=== PATIENT | female | born 1975 | race Caucasian/White ===

== ENCOUNTER 2018-04-12 16:34 | Emergency (ER) | payer BC ==
--- NOTE | 2018-04-12 17:31 | PDOC ---
Rapid Medical Evaluation Chief Complaint: CVA/TIA Medical Evaluation: Allergies Allergy/AdvReac Type Severity Reaction Status Date / Time aspirin Allergy Intermediate Itching Verified 04/12/18 17:28 diclofenac Allergy Intermediate Itching Verified 04/12/18 17:28 ibuprofen [From Motrin] Allergy Intermediate Itching Verified 04/12/18 17:28 naproxen sodium [From Aleve] Allergy Intermediate Itching Verified 04/12/18 17: 28 04/12/18 17:29 I have performed a brief in-person evaluation of this patient. The patient presents with a chief complaint of: left leg numbness, sent from [facility] Santoro office for eval/ R/o TIA Pertinent physical exam findings: AxO X 3 , no neuro changes, denies current numbness. States incidents occured on and off x 1 week. I have ordered the following: CT head The patient will proceed to the ED for further evaluation. and patient taken for registration. 04/12/18 19:17 04/12/18 21:59 Discharge Disposition - Diagnosis Leg numbness - Discharge Dispostion Disposition: HOME Condition at time of disposition: Good - Referrals Referrals: Jorge Santoro MD [Primary Care Provider] - - Patient Instructions Printed Discharge Instructions: DI for Transient Ischemic Attack Additional Instructions: You were seen in the ER today for left lung numbness. The results of your labs and imaging today were normal. Please follow-up with your primary care doctor within 1-2 days to discuss your visit and make sure your symptoms have improved. Please return to the ER if you have any worsening neurological symptoms (numbness, weakness, tingling), development of fevers or chills, loss of consciousness, inability to tolerate food or fluids, or any other concerns. Please see Dr. Santoro for continued follow-up. Please take your plavix as prescribed. - Post Discharge Activity
[2018-04-12 17:32] VITALS: BMI 31.0
--- NOTE | 2018-04-12 18:58 | PDOC ---
History of Present Illness <Alessandra Argueta - Last Filed: 04/12/18 19:32> - General History Source: Patient Exam Limitations: No Limitations - History of Present Illness Initial Comments: Pt is a 42 yo F, with no significant PMH, who is presenting with complaints of L -sided facial numbness and L leg numbness that is intermittent over the past 3 weeks. Pt had L-sided leg numbness last night around 9-10 pm, which was the last neuro deficit. Pt states the numbness comes and goes, and usually only lasts for a few minutes and goes away. Pt currently has no complaints. Pt saw her PCP today (Dr. Jorge Santoro) who started her on Plavix and sent her for further work-up/CT scan. Pt denies any recent fevers/chills, headache, peripheral weakness, vision changes, syncope, chest pain, palpitations, SOB, nausea/vomiting, abdominal pain, urinary symptoms, diarrhea/constipation, or leg swelling. Social: Pt denies any cigarette, alcohol, or drug use. Pt denies any recent travel or sick contacts. Surgical: no relevant history. Family: Father - of MA at 52. 04/12/18 21:41 <Olinda Ocampo - Last Filed: 04/12/18 21:44> - General Chief Complaint: CVA/TIA Stated Complaint: PCP SENT/ R/O TIA Time Seen by Provider: 04/12/18 18:28 tPA Exclusion Checklist 0-3hr - Time Elapsed Date last known well: 04/11/18 (symptoms for weeks) Time last known well: 22:00 Elaspsed time: Day(s) and 23 Hour(s) and 37 Minutes - Thrombolytic Therapy Candidate Is the patient eligible for Thrombolytic Therapy?: No - Exclusion Criteria 0-3hr SBP greater than 185 or DBP greater than 110mmHg despite tx: No Recent IC/spinal surgery,head trauma or stroke w/in last 3mo: No Hx of previous IC hemorrhage, IC neoplasm, AVM or aneurysm: No Active internal bleeding: No Blding diathesis(low plt ct, inc PTT,INR>1.7 or use of NOAC): No Symptoms suggest subarachnoid hemorrhage: No CT demonstrates multilobar infarct(>1/3 cerebral hemiphere): No Arterial puncture at noncompressible site in previous 7 days: No Blood glucose concentration less than 50mg/dL (2.7mmol/L): No - Relative Exclusion Criteria 0-3h Life expectancy <1yr/severe co-morbid illness/APPEALS ANALYST on admit: No Patient/family refused: No Rapid improvement: Yes Stroke severity too mild: Yes Recent acute MA (w/in previous 3 months): No Seizure at onset with postictal residual neuro impairments: No Major surgery or serious trauma w/in previous 14 days: No Recent GI or hemorrhage (w/in previous 21 days): No - Ineligibility reason(s) Reasons No tPA given: Outside of window - delayed arrival, See reason(s) noted above (symptoms over 3 weeks, intermittent and changing, unlikely TIA/CVA) <Olinda Ocampo - Last Filed: 04/12/18 21:44> Past History <Alessandra Argueta - Last Filed: 04/12/18 19:32> - Travel Traveled outside of the country in the last 30 days: No Close contact w/someone who was outside of country & ill: No - Past Medical History Anemia: No Asthma: No Cancer: No Cardiac Disorders: No CVA: No COPD: No CHF: No Dementia: No Diabetes: No GI Disorders: No Disorders: No HTN: No Hypercholesterolemia: No Liver Disease: No Seizures: No Thyroid Disease: No - Surgical History Abdominal Surgery: No Appendectomy: No Cardiac Surgery: No Cholecystectomy: No Lung Surgery: No Neurologic Surgery: No Orthopedic Surgery: No - Suicide/Smoking/Psychosocial Hx Smoking History: Never smoked Number of Cigarettes Smoked Daily: 0 Hx Alcohol Use: No Drug/Substance Use Hx: No Substance Use Type: None Hx Substance Use Treatment: No <Olinda Ocampo - Last Filed: 04/12/18 21:44> - Past Medical History Allergies/Adverse Reactions: Allergies Allergy/AdvReac Type Severity Reaction Status Date / Time aspirin Allergy Intermediate Itching Verified 04/12/18 17:28 diclofenac Allergy Intermediate Itching Verified 04/12/18 17:28 ibuprofen [From Motrin] Allergy Intermediate Itching Verified 04/12/18 17:28 naproxen sodium [From Aleve] Allergy Intermediate Itching Verified 04/12/18 17: 28 Home Medications: Ambulatory Orders Clopidogrel Bisulfate [Plavix] 75 mg PO DAILY 04/12/18 Review of Systems - Review of Systems Able to Perform ROS?: Yes Is the patient limited Upper Sorbian proficient: No Constitutional: Yes: Weight Stable. No: Chills, Diaphoresis, Fever, Loss of Appetite, Malaise, Weakness HEENTM: No: Blurred Vision, Recent change in vision, Double Vision, Nose Congestion, Throat Pain, Throat Swelling, Difficulty Swallowing Respiratory: No: Cough, Shortness of Breath Cardiac (ROS): No: Chest Pain, Edema, Irregular Heart Rate, Lightheadedness, Palpitations, Syncope, Chest Tightness ABD/GI: No: Constipated, Diarrhea, Nausea, Poor Appetite, Poor Fluid Intake, Vomiting : No: Burning, Dysuria, Frequency, Pain, Urgency Musculoskeletal: No: Back Pain, Joint Pain, Joint Swelling, Muscle Pain, Muscle Weakness, Neck Pain Integumentary: No: Rash Neurological: Yes: See HPI, Numbness. No: Headache, Paresthesia, Tingling, Tremors, Weakness, Unsteady Gait, Ataxia, Dizziness Psychiatric: No: Sleep Pattern Change, Change in Appetite Endocrine: No: Increased Urine, Change in Weight Hematologic/Lymphatic: No: Anemia, Blood Clots, Easy Bleeding, Easy Bruising All Other Systems: Reviewed and Negative <Olinda Ocampo - Last Filed: 04/12/18 21:44> *Physical Exam - Vital Signs Last Vital Signs Temp Pulse Resp BP Pulse Ox 99.0 F 79 18 123/61 100 04/12/18 17:29 04/12/18 17:29 04/12/18 17:29 04/12/18 17:29 04/12/18 17:29 <Alessandra Argueta - Last Filed: 04/12/18 19:32> - Vital Signs Last Vital Signs Temp Pulse Resp BP Pulse Ox 99.0 F 79 18 123/61 100 04/12/18 17:29 04/12/18 17:29 04/12/18 17:29 04/12/18 17:29 04/12/18 17:29 - Physical Exam Comments: Vitals stable, pt afebrile. Pt in NAD, normal body habitus. PE showed pt alert and oriented. tuck pointer generally intact, muscular strength and sensation intact, no diminished sensation in face or extremities at time of exam. Eyes PERRLA, EOMI. Oropharynx without erythema or exudates, no LAD b/l. No nasal congestion, hearing intact. Clear heart sounds, S1/S2, no JVD, b/l pedal edema, or heart murmur. Clear lung sounds, no respiratory distress, wheezes, crackles, or accessory muscle use. No abdominal or CVA tenderness to palpation, no rebound, no guarding. Abdomen soft, non-distended, and with normoactive bowel sounds. Skin without jaundice or rash. Benign PE. 04/12/18 21:44 <Olinda Ocampo - Last Filed: 04/12/18 21:44> Moderate Sedation - Procedure Monitoring Vital Signs: Procedure Monitoring Vital Signs Temperature 99.0 F 04/12/18 17:29 Pulse Rate 79 04/12/18 17:29 Respiratory Rate 18 04/12/18 17:29 Blood Pressure 123/61 04/12/18 17:29 O2 Sat by Pulse Oximetry (%) 100 04/12/18 17:29 <Alessandra Argueta - Last Filed: 04/12/18 19:32> - Procedure Monitoring Vital Signs: Procedure Monitoring Vital Signs Temperature 99.0 F 04/12/18 17:29 Pulse Rate 79 04/12/18 17:29 Respiratory Rate 18 04/12/18 17:29 Blood Pressure 123/61 04/12/18 17:29 O2 Sat by Pulse Oximetry (%) 100 04/12/18 17:29 <Olinda Ocampo - Last Filed: 04/12/18 21:44> ED Treatment Course - LABORATORY CBC & Chemistry Diagram: 04/12/18 18:44 04/12/18 18:44 - ADDITIONAL ORDERS Additional order review: Laboratory Results 04/12/18 18:44 Sodium 140 Potassium 3.9 Chloride 106 Carbon Dioxide 27 Anion Gap 7 L BUN 15 Creatinine 0.8 Creat Clearance w eGFR > 60 Random Glucose 91 Calcium 8.5 Magnesium 2.3 Total Bilirubin 0.6 AST 10 L ALT 22 Alkaline Phosphatase 100 Creatine Kinase 49 Troponin I < 0.02 Total Protein 7.8 Albumin 3.8 - RADIOLOGY Radiology Studies Ordered: Category Date Time Status HEAD CT (STROKE) [CT] Stat CT Scan 04/12/18 18:28 Ordered <Alessandra Argueta - Last Filed: 04/12/18 19:32> - LABORATORY CBC & Chemistry Diagram: 04/12/18 18:44 04/12/18 18:44 <Olinda Ocampo - Last Filed: 04/12/18 21:44> Medical Decision Making - Medical Decision Making Pt was seen at bedside, also will be seen by attending Dr. Argueta. Pt presenting with complaints of L-sided facial numbness and L leg numbness that is intermittent over the past 3 weeks. Pt had L-sided leg numbness last night around 9-10 pm, which was the last neuro deficit. Pt states the numbness comes and goes, and usually only lasts for a few minutes and goes away. Pt currently has no complaints. Pt saw her PCP today (Dr. Jorge Santoro) who started her on Plavix and sent her for further work-up/CT scan. Pt denies any recent fevers/ chills, headache, peripheral weakness, vision changes, syncope, chest pain, palpitations, SOB, nausea/vomiting, abdominal pain, urinary symptoms, diarrhea/ constipation, or leg swelling. Vitals stable, pt afebrile. Pt in NAD, normal body habitus. PE showed pt alert and oriented. tuck pointer generally intact, muscular strength and sensation intact, no diminished sensation in face or extremities at time of exam. Eyes PERRLA, EOMI. Oropharynx without erythema or exudates, no LAD b/l. No nasal congestion, hearing intact. Clear heart sounds, S1/S2, no JVD, b/l pedal edema, or heart murmur. Clear lung sounds, no respiratory distress, wheezes, crackles, or accessory muscle use. No abdominal or CVA tenderness to palpation, no rebound, no guarding. Abdomen soft, non-distended, and with normoactive bowel sounds. Skin without jaundice or rash. Benign PE. Considering TIA vs MS vs hypoglycemic episodes. Unlikely CVA as episodes are intermittent, and Ordered work-up including TIA/CVA labs (CBC, CMP, coags, lipid panel, non- contrast head CT), UA, urine culture. No interventions needed at this time. Pt is not candidate for TPA due to timeline of symptoms (see exclusion note). Will continue to reassess pt and monitor for symptomatic improvement. 04/12/18 18:58 ECG: NSR, intervals WNL. No TWIs or significant ST segment changes. No significant changes from prior ECG. CBC, CMP, coags WNL, serum -- pt taken for CT scan Trop <.02 UA negative 04/12/18 19:29 CT scan showed no acute pathology. 04/12/18 20:[address] Jorge Santoro to determine if we should keep pt for admission or if she can follow-up for outpatient MRI. Pt willing to stay. 04/12/18 20:26 Dr. Santoro agrees with plan to discharge home and see pt in outpt follow-up for MRI and carotid doppler. Considering normal lab results and imaging, pt can be discharged to home with follow-up. Pt advised to follow-up with PCP in 1-2 days. Strict return precautions provided with pt understanding. 04/12/18 21:37 <Olinda Ocampo - Last Filed: 04/12/18 21:44> *DC/Admit/Observation/Transfer <Alessandra Argueta - Last Filed: 04/12/18 19:32> - Discharge Dispostion Decision to Admit order: No <Olinda Ocampo - Last Filed: 04/12/18 21:44> Diagnosis at time of Disposition: Leg numbness - Discharge Dispostion Disposition: HOME Condition at time of disposition: Good - Referrals Referrals: Jorge Santoro MD [Primary Care Provider] - - Patient Instructions Printed Discharge Instructions: DI for Transient Ischemic Attack Additional Instructions: You were seen in the ER today for left lung numbness. The results of your labs and imaging today were normal. Please follow-up with your primary care doctor within 1-2 days to discuss your visit and make sure your symptoms have improved. Please return to the ER if you have any worsening neurological symptoms (numbness, weakness, tingling), development of fevers or chills, loss of consciousness, inability to tolerate food or fluids, or any other concerns. Please see Dr. Santoro for continued follow-up. Please take your plavix as prescribed. - Post Discharge Activity
[2018-04-12 19:03] LABS: BASO % 0.8 % (0-2.0); EOS % 1.6 % (0-4.5); HEMOGLOBIN 13.5 GM/dL (10.7-15.3); LYMPH % 26.6 % (8-40); MCH 29.8 pg (25.7-33.7); MCHC 34.7 g/dl (32.0-36.0); MONO % 8.3 % (3.8-10.2); NEUT % 62.7 % (42.8-82.8); PLATELET COUNT 237 K/MM3 (134-434); RBC 4.53 M/mm3 (3.60-5.2); RDW 14.2 % (11.6-15.6)
[2018-04-12 19:29] LABS: ALBUMIN 3.8 g/dl (3.4-5.0); ALK PHOS 100 U/L (45-117); ANION GAP 7 MMOL/L (8-16); BILIRUBIN,TOTAL 0.6 mg/dL (0.2-1); BLOOD UREA NITROGEN 15 mg/dL (7-18); CALCIUM 8.5 mg/dL (8.5-10.1); CHLORIDE 106 mmol/L (98-107); CO2 27 mmol/L (21-32); CREATININE 0.8 mg/dL (0.55-1.3); GLUCOSE,RANDOM 91 mg/dL (74-106); MAGNESIUM 2.3 mg/dL (1.8-2.4); POTASSIUM 3.9 mmol/L (3.5-5.1); SGOT/AST 10 U/L (15-37); SGPT/ALT 22 U/L (13-61); SODIUM 140 mmol/L (136-145); TOT PROT 7.8 g/dl (6.4-8.2)
[2018-04-12 19:33] LABS: INR 1.04 (0.83-1.09); PROTHROMBIN TIME (PATIENT) 12.3 SEC (9.7-13.0)
[2018-04-12 19:36] LABS: URINE APPEARANCE CLEAR; URINE BILIRUBIN NEGATIVE (<2.0 mg/dL); URINE COLOR YELLOW; URINE GLUCOSE (UA) NEGATIVE (NEGATIVE); URINE KETONE NEGATIVE (NEGATIVE); URINE LEUK ESTERASE NEGATIVE (NEGATIVE); URINE NITRITE NEGATIVE (NEGATIVE); URINE PROTEIN NEGATIVE (NEGATIVE)
[2018-04-12 19:36] LABS: ACTIVATED PTT 28.4 SECONDS (25.2-36.5)
--- NOTE | 2018-04-12 19:38 | PDOC ---
Attending Attestation - HPI HPI: 04/12/18 19:44 The patient is a 42 year old female with a PMH of HTN who presents to the ER for evaluation of recent left sided facial numbness, left arm numbness, and left leg numbness within the past 3 weeks. Patient reports the numbness is intermittent and states the left arm numbness lasts for 2 minutes at a time, and the left leg numbness lasts for a minute and feels like "pins and needles." Patient notes the numbness typically starts upon waking up from her sleep, and resolve on their own shortly after. Patient has not noticed any changes in her gait. Patient was started on plavix by her PCP, Dr. Jorge Santoro. The patient denies chest pain, shortness of breath, headache and dizziness. Denies fever, chills, nausea, vomit, diarrhea and constipation. Denies dysuria, frequency, urgency and hematuria. Allergies: NKA Past surgical history: None reported. Social history: No reported alcohol, drug or cigarette use. PCP: Dr. Jogre Santoro - Physicial Exam PE: 04/12/18 19:59 ADULT PHYSICAL EXAM Constitutional: Awake, alert, oriented. No acute distress. Head: Normocephalic. Atraumatic Eyes: PERRL. EOMI. Conjunctivae are not pale. Cardiovascular: Regular rate. Regular rhythm. S1, S2 regular. Distal pulses are 2+ and symmetric. Pulmonary/Chest: No evidence of respiratory distress. Clear to auscultation bilaterally No wheezing, rales or rhonchi. Abdominal: Soft and non-distended. There is no tenderness. No rebound, guarding or rigidity. No organomegaly. No palpable masses. Good bowel sounds. Back: No CVA tenderness. Musculoskeletal: No edema. No cyanosis. No clubbing. Full range of motion in all extremities. Nocalf tenderness. Radial/pedal pulses are intact and 2+ bilaterally Skin: Skin is warm and dry. No petechiae. No purpura. Neurological: Alert and oriented to person, place, and time. Cranial nerves II -XII are grossly intact. Normal speech. Strength is grossly symmetric. No sensory deficits. Psychiatric: Good eye contact. Normal interaction, affect and behavior. <Leilani Alas - Last Filed: 04/12/18 19:59> - Resident Resident Name: Olinda Ocampo - ED Attending Attestation I have performed the following: I have examined & evaluated the patient, The case was reviewed & discussed with the resident, I agree w/resident's findings & plan, Exceptions are as noted - Medical Decision Making 04/12/18 19:32 I, Dr. Alessandra Argueta, DO, attest that this document has been prepared under my direction and personally reviewed by me in its entirety. I further attest, that it accurately reflects all work, treatment, procedures and medical decision -making performed by me. 04/12/18 19:33 a/p: 42yo female with intermittent episodes of numbness that only lasts a few minutes. L arm numbness last week, L facial numbness - both after sleeping on L side and L leg numbness last night which has since resolved. -NIHSS 0 pt currently denies all symptoms -started on plavix today by Dr. Paulina Santoro -denies kolb -no midline back pain -neuro intact -will send labs, ekg, cxr, head ct 04/12/18 20:[address] negative labs reviewed pt neuro intact, no focal symptoms low suspicion for cva/tia - symptoms assoc with sleeping on her L side resident discussed the case with Dr. Paulina Santoro who will continue the work up as an outpt <Alessandra Argueta - Last Filed: 04/12/18 20:39> Heart Score/ECG Review - ECG Intrepretation Comment:: 04/12/18 19:33 sinus at 77, nl axis, nl interval, no acute st/t wave findings <Alessandra Argueta - Last Filed: 04/12/18 20:39>
[2018-04-12 20:30] VITALS: BP 137/87; PULSE 78; TEMP 98.3
[2018-04-12 21:13] LABS: CHOLESTEROL 164 mg/dL (50-200); HDL CHOLESTEROL 46 mg/dL (40-60); TRIGLYCERIDES 73 mg/dL (0-150)
--- NOTE | 2018-04-13 14:23 | EKG ---
Test Reason : Blood Pressure : / mmHG Vent. Rate : 077 BPM Atrial Rate : 077 BPM P-R Int : 172 ms QRS Dur : 100 ms QT Int : 372 ms P-R-T Axes : 050 013 033 degrees QTc Int : 420 ms NORMAL SINUS RHYTHM WITH SINUS ARRHYTHMIA POSSIBLE LEFT ATRIAL ENLARGEMENT NO PREVIOUS ECGS AVAILABLE Confirmed by AIDA SEBASTIAN MD ([id number]) on 04/13/2018 2:22:33 PM Referred By: Confirmed By:AIDA SEBASTIAN MD
== END 2018-04-12 20:55 | disposition home or self-care (01) ==
LOC: JER 16:34
DX: R20.0 Anesthesia of skin (principal)
CPT/HCPCS: 36415; 70450-TC; 80053; 80061; 81003; 82550; 83721; 83735; 84484; 84703; 85025; 85610; 85730; 86850; 86900; 86901; 87086; 93005; 93010; 99283-25

== ENCOUNTER 2018-06-09 01:47 | Emergency (ER) | payer BC ==
--- NOTE | 2018-06-09 01:54 | PDOC ---
History of Present Illness - General Stated Complaint: NUMBNESS,LT SIDE/FALL Time Seen by Provider: 06/09/18 01:53 History Source: Patient Exam Limitations: No Limitations Past History - Travel Traveled outside of the country in the last 30 days: No Close contact w/someone who was outside of country & ill: No - Past Medical History Allergies/Adverse Reactions: Allergies Allergy/AdvReac Type Severity Reaction Status Date / Time aspirin Allergy Intermediate Itching Verified 06/09/18 02:47 diclofenac Allergy Intermediate Itching Verified 06/09/18 02:47 ibuprofen [From Motrin] Allergy Intermediate Itching Verified 06/09/18 02:47 naproxen sodium [From Aleve] Allergy Intermediate Itching Verified 06/09/18 02: 47 Home Medications: Ambulatory Orders Clopidogrel Bisulfate [Plavix] 75 mg PO DAILY 04/12/18 Anemia: No Asthma: No Cancer: No Cardiac Disorders: No CVA: No COPD: No CHF: No Dementia: No Diabetes: No GI Disorders: No Disorders: No HTN: No Hypercholesterolemia: No Liver Disease: No Seizures: No Thyroid Disease: No - Surgical History Abdominal Surgery: No Appendectomy: No Cardiac Surgery: No Cholecystectomy: No Lung Surgery: No Neurologic Surgery: No Orthopedic Surgery: No - Suicide/Smoking/Psychosocial Hx Smoking History: Never smoked Number of Cigarettes Smoked Daily: 0 Hx Alcohol Use: No Drug/Substance Use Hx: No Substance Use Type: None Hx Substance Use Treatment: No Review of Systems - Review of Systems Able to Perform ROS?: Yes Is the patient limited Turkmen proficient: No Constitutional: Yes: Weight Stable. No: Chills, Diaphoresis, Fever, Loss of Appetite, Malaise, Night Sweats, Weakness HEENTM: No: Blurred Vision, Double Vision, Nose Pain, Nose Congestion, Throat Pain, Throat Swelling Respiratory: No: Cough, Orthopnea, Shortness of Breath Cardiac (ROS): No: Chest Pain, Edema, Irregular Heart Rate, Lightheadedness, Palpitations, Syncope, Chest Tightness ABD/GI: No: Constipated, Diarrhea, Nausea, Poor Appetite, Poor Fluid Intake, Vomiting : No: Burning, Dysuria, Pain, Urgency Musculoskeletal: Yes: See HPI, Muscle Weakness ("lost control and fell to the ground"). No: Back Pain, Joint Pain, Muscle Pain Integumentary: No: Rash Neurological: Yes: See HPI, Numbness, Paresthesia, Tingling. No: Headache, Weakness, Unsteady Gait, Ataxia, Dizziness Psychiatric: No: Sleep Pattern Change, Change in Appetite Endocrine: No: Increased Urine, Change in Weight Hematologic/Lymphatic: No: Anemia, Blood Clots, Easy Bleeding, Easy Bruising All Other Systems: Reviewed and Negative *DC/Admit/Observation/Transfer Diagnosis at time of Disposition: Numbness on left side - Discharge Dispostion Disposition: HOME Condition at time of disposition: Good Decision to Admit order: No - Referrals Referrals: Jorge Santoro MD [Primary Care Provider] - - Patient Instructions Printed Discharge Instructions: DI for Numbness/tingling Additional Instructions: You were seen in the ER today for numbness and tingling on your left side, with swelling of your left ankle after you fell. The results of your exam and x-ray today were normal. Please follow-up with your primary care doctor and neurology (Dr. Rai) within 1-2 days to discuss your visit and make sure your symptoms have improved. Please continue taking the Plavix as prescribed. Please return to the ER if you have any worsening numbness or development of weakness in your extremities, vision changes, development of fevers or chills, loss of consciousness, inability to tolerate food or fluids, or any other concerns. - Post Discharge Activity
--- NOTE | 2018-06-09 02:18 | PDOC ---
Attending Attestation - Resident Resident Name: Olinda Ocampo - ED Attending Attestation I have performed the following: I have examined & evaluated the patient, The case was reviewed & discussed with the resident, I agree w/resident's findings & plan - HPI HPI: 06/09/18 03:25 Pt went out to eat last night and had an alcoholic drink, states that she never drinks alcohol. States that she woke up feeling unwell, and felt that the left side of her body was numb. She states that the numbness lasted 2 min. She was sleeping on her left side, and pt is obese - 50 lbs overweight (210lbs at 5'9") Pt has known fleeting weakness - Physicial Exam PE: 06/09/18 20:10 Agree with resident exam. Pt has normal heart and lungs; abd soft NT ND; no orthostatic hypotension at bedside exam. Pt has normal neuro exam and CN 2-12 intact. No pitting edema and no tachycardia. Normal EKG and normal foot XR. Normal fingerstick. We will not get labs or imaging of her head. - Medical Decision Making 06/09/18 20:15 Pt feels better with treatment and reassurance in the ER and she will be sent home with her family. Stable for discharge. Follow with neuro for sleep study/ EEG as needed.
[2018-06-09 02:47] VITALS: BP 124/94; PULSE 96; TEMP 98.4; BMI 73.2
--- NOTE | 2018-06-09 09:38 | EKG ---
Test Reason : Blood Pressure : / mmHG Vent. Rate : 086 BPM Atrial Rate : 086 BPM P-R Int : 168 ms QRS Dur : 100 ms QT Int : 368 ms P-R-T Axes : 059 011 025 degrees QTc Int : 440 ms NORMAL SINUS RHYTHM NORMAL ECG WHEN COMPARED WITH ECG OF 12-APR-2018 19:18, NO SIGNIFICANT CHANGE WAS FOUND Confirmed by EDUARDO TIDWELL MD ([id number]) on 06/09/2018 9:37:34 AM Referred By: Confirmed By:EDUARDO TIDWELL MD
== END 2018-06-09 03:29 | disposition home or self-care (01) ==
LOC: JER 01:47
DX: R20.0 Anesthesia of skin (principal)
CPT/HCPCS: 73610-TC-LT-FY; 73630-TC-LT; 82962; 93005; 93010; 99282-25

== ENCOUNTER → 2019-01-17 | Day surgery (SDC) | payer BC ==
--- NOTE | 2019-01-18 15:32 | PATH ---
Surgical Pathology Report Patient Name: KINSEY SZYMANSKI [facility]. Rec. #: [id number] /Age/Gender: 1975 (Age: 43) / F Account: [id number] Location: [facility] Taken: 01/17/2019 Received: 01/17/2019 Reported: 01/18/2019 Physicians: Lucio Padgett M.D. Specimen(s) Received A: LEFT BREAST SPECIMEN WITH CALCIFICATIONS B: LEFT BREAST SPECIMEN WITHOUT CALCIFICATIONS Clinical History Nonpalpable lesion Mammographic findings: Suspicious, highly suspicious/malignant Final Diagnosis A. BREAST, LEFT, WITH CALCIFICATIONS, STEREOTACTIC BIOPSY: BENIGN BREAST TISSUE SHOWING STROMAL FIBROSIS, FEW MICROCYSTS AND CALCIFICATIONS IN ASSOCIATION WITH BENIGN GLANDULAR PARENCHYMA. B. BREAST, LEFT, WITHOUT CALCIFICATIONS, STEREOTACTIC BIOPSY: BENIGN BREAST TISSUE. Electronically Signed Anusha Leal M.D. Gross Description A. Received in formalin labeled "left breast with calcifications," are 3 vicente-yellow, cylindrical portions of fibroadipose tissue ranging from 2.2-2.6 cm in length and averaging 0.4 cm in diameter. The specimens are submitted in toto one cassette. B. Received in formalin labeled "left breast without calcifications," is a 1.9 x 1.8 x 0.3 cm aggregate of multiple vicente-yellow, irregular to cylindrical portions of fibroadipose tissue. The formalin is filtered and the specimen is entirely submitted in one cassette. Time to formalin fixation: 5 minutes Total formalin fixation time: Approximately 6 hours. 01/17/201901/17/2019
== END | disposition home or self-care (01) ==
LOC: FMAMMOTONE 09:58
PROVIDERS: ATTEND Family Medicine
PROC: 0HBU3ZX Excision of Left Breast, Percutaneous Approach, Diagnostic (ICD-10-PCS; principal; 2019-01-17)
DX: N60.12 Diffuse cystic mastopathy of left breast (principal); N60.32 Fibrosclerosis of left breast; N64.89 Other specified disorders of breast; R92.1 Mammographic calcification found on diagnostic imaging of breast
CPT/HCPCS: 19081; 76098-TC-FY; 88305-TC